=== PATIENT | male | born 1995 | race Caucasian/White ===

== ENCOUNTER 2019-07-29 07:45 | Emergency (ER) | payer SELFPAY ==
[2019-07-29] MEDS ORDERED: IBUPROFEN 100 MG/5 ML UCUP ONE (08:09)
--- NOTE | 2019-07-29 08:51 | ER ---
Nurse's Notes [facility] Name: Jose Cummings Age: 24 yrs Sex: Male : 1995 Arrival Date: 07/29/2019 Time: 07:49 Bed 10 Private MD: Diagnosis: Acute pharyngitis Presentation: 07/29 07:53 Presenting complaint: Patient states: sore throat, tonsil swelling and fever that began ss 2 days ago. Transition of care: patient was not received from another setting of care. Onset of symptoms was June 26, 2019. Risk Assessment: Do you want to hurt yourself or someone else? Patient reports no desire to harm self or others. Initial Sepsis Screen: Does the patient meet any 2 criteria? No. Patient's initial sepsis screen is negative. Does the patient have a suspected source of infection? No. Patient's initial sepsis screen is negative. Care prior to arrival: None. 07:53 Method Of Arrival: Ambulatory ss 07:53 Acuity: JESSIE 4 ss Historical: - Allergies: 07:55 No Known Allergies; ss - Home Meds: 07:55 levothyroxine oral [Active]; ss - PMHx: 07:55 Hypothyroidism; ss - PSHx: 07:55 Tonsillectomy; ss - Immunization history:: Adult Immunizations unknown. - Social history:: Smoking status: Patient/guardian denies using tobacco. - Ebola Screening: : Patient denies exposure to infectious person Patient denies travel to an Ebola-affected area in the 21 days before illness onset. Screenin:30 Abuse screen: Denies threats or abuse. Denies injuries from another. Nutritional ss screening: No deficits noted. Tuberculosis screening: Never had TB. Fall Risk None identified. Assessment: 07:53 General: Appears in no apparent distress. comfortable, Behavior is cooperative, ss anxious. Pain: Complains of pain in throat Pain began 4 days ago Is continuous. Neuro: Level of Consciousness is awake, alert, obeys commands, Oriented to person, place, time, situation. Cardiovascular: Patient's skin is warm and dry. Respiratory: Airway is patent Respiratory effort is even, unlabored, Respiratory pattern is regular, symmetrical. GI: Reports difficulty swallowing pills. Patient currently denies diarrhea, nausea, vomiting. : No signs and/or symptoms were reported regarding the genitourinary system. EENT: Throat is reddened. Derm: Skin is intact, is healthy with good turgor, Skin is pink, warm \\T\\ dry. normal. Musculoskeletal: Circulation, motion, and sensation intact. Range of motion: intact in all extremities. 08:10 Reassessment: Patient swallowed Motrin and water without difficulty. ss 09:12 Reassessment: Upon discharge, patient appeared upset, but smiling. Educated patient on ss follow up instructions which he then replied that he did not have a PCP. Spoke with patient that if he felt if his symptoms were worsening and he felt as if he needed to be seen again before he could obtain a PCP, that he could come back in to be reevaluated in ED. Pt states, "Why would I come back here if nothing was done?" When asked what patient's concerns were, he refused the Maalox and Viscous lidocaine cocktail and states, I'm just going to get a coffee." Patient then verbalized understanding of follow up instructions and left. Vital Signs: 07:55 BP 134 / 89; Pulse 98; Resp 17; Temp 100.8(TE); Pulse Ox 98% on R/A; Weight 87.09 kg; ss Height 6 ft. 3 in. (190.50 cm); 09:11 Temp 98.2(TE); ss 07:55 Body Mass Index 24.00 (87.09 kg, 190.50 cm) ED Course: 07:49 Patient arrived in ED. rg4 07:51 Georgina [facility]C [facility]. kb 07:51 Devyn Nguyen MD is Attending Physician. kb 07:54 Triage completed. ss 07:55 Arm band placed on right wrist. ss 08:30 Patient has correct armband on for positive identification. Bed in low position. Call ss light in reach. 08:58 Josefina Dawson, ARLETTE is Primary Nurse. ss 09:11 No provider procedures requiring assistance completed. Patient did not have IV access ss during this emergency room visit. Administered Medications: 08:09 Drug: Ibuprofen 600 mg Route: PO; ss 09:11 Follow up: Response: No adverse reaction; Temperature is decreased ss 09:11 Not Given (Patient Refused): GI Cocktail without - (Maalox Suspension 30 ml, ss Lidocaine Liquid 2 % 15 ml) PO once Outcome: 08:50 Discharge ordered by . gary 09:11 Discharged to home ambulatory, with significant other. ss 09:11 Condition: good 09:11 Discharge instructions given to patient, significant other, Instructed on discharge instructions, follow up and referral plans. medication usage, Demonstrated understanding of instructions, follow-up care, medications. 09:12 Patient left the ED. Signatures: Georgina White, OLGA-C OLGA-Josefina Foote, RN RN Rachelle Allison rg4
--- NOTE | 2019-07-29 08:52 | EDPHYS ---
Physician Documentation [facility] Name: Jose Cummings Age: 24 yrs Sex: Male : 1995 Arrival Date: 07/29/2019 Time: 07:49 Bed 10 Private MD: ED Physician Devyn Nguyen HPI: 07/29 08:49 This 24 yrs old Male presents to ER via Ambulatory with complaints of Sore kb Throat. 08:49 The patient presents with sore throat. The patient describes throat pain as constant. kb Onset: The symptoms/episode began/occurred 2 day(s) ago. Severity of symptoms: At their worst the symptoms were moderate, in the emergency department the symptoms are unchanged. Modifying factors: The symptoms are alleviated by nothing, the symptoms are aggravated by swallowing, Patient's oral intake status: limited fluid intake, limited food intake, Denies contact with similarly ill indivduals. Associated signs and symptoms: Pertinent positives: fever, Sore throat. The patient has not experienced similar symptoms in the past. The patient has not recently seen a physician. Pt reports fever, sore throat and swelling that started 2 days ago. Had augmentin at home that he has been taking without relief. States the pills feel like they are getting stuck so that is why he came in today. Pt tolerating fluids. . Historical: - Allergies: 07:55 No Known Allergies; ss - Home Meds: 07:55 levothyroxine oral [Active]; ss - PMHx: 07:55 Hypothyroidism; ss - PSHx: 07:55 Tonsillectomy; ss - Immunization history:: Adult Immunizations unknown. - Social history:: Smoking status: Patient/guardian denies using tobacco. - Ebola Screening: : Patient denies exposure to infectious person Patient denies travel to an Ebola-affected area in the 21 days before illness onset. ROS: 08:46 Neck: Negative for injury, pain, and swelling, Cardiovascular: Negative for chest pain, kb palpitations, and edema, Respiratory: Negative for shortness of breath, cough, wheezing, and pleuritic chest pain, Abdomen/GI: Negative for abdominal pain, nausea, vomiting, diarrhea, and constipation, MS/Extremity: Negative for injury and deformity, Skin: Negative for injury, rash, and discoloration, Neuro: Negative for headache, weakness, numbness, tingling, and seizure. 08:46 Constitutional: Positive for fever. 08:46 ENT: Positive for sore throat. Exam: 08:48 Constitutional: This is a well developed, well nourished patient who is awake, alert, kb and in no acute distress. Head/Face: Normocephalic, atraumatic. Neck: Trachea midline, no thyromegaly or masses palpated, and no cervical lymphadenopathy. Supple, full range of motion without nuchal rigidity, or vertebral point tenderness. No Meningismus. Chest/axilla: Normal chest wall appearance and motion. Nontender with no deformity. No lesions are appreciated. Cardiovascular: Regular rate and rhythm with a normal S1 and S2. No gallops, murmurs, or rubs. Normal PMI, no JVD. No pulse deficits. Respiratory: Lungs have equal breath sounds bilaterally, clear to auscultation and percussion. No rales, rhonchi or wheezes noted. No increased work of breathing, no retractions or nasal flaring. Abdomen/GI: Soft, non-tender, with normal bowel sounds. No distension or tympany. No guarding or rebound. No evidence of tenderness throughout. Skin: Warm, dry with normal turgor. Normal color with no rashes, no lesions, and no evidence of cellulitis. MS/ Extremity: Pulses equal, no cyanosis. Neurovascular intact. Full, normal range of motion. Neuro: Awake and alert, GCS 15, oriented to person, place, time, and situation. Cranial nerves II-XII grossly intact. Motor strength 5/5 in all extremities. Sensory grossly intact. Cerebellar exam normal. Normal gait. 08:48 ENT: External ear(s): are unremarkable, Ear canal(s): are normal, TM's: are normal, Nose: is normal, Mouth: is normal, Posterior pharynx: Airway: normal, no evidence of obstruction, Tonsils: are normal in appearance, erythema, that is mild. Vital Signs: 07:55 BP 134 / 89; Pulse 98; Resp 17; Temp 100.8(TE); Pulse Ox 98% on R/A; Weight 87.09 kg; ss Height 6 ft. 3 in. (190.50 cm); 09:11 Temp 98.2(TE); ss 07:55 Body Mass Index 24.00 (87.09 kg, 190.50 cm) ss MDM: 07:51 Patient medically screened. kb 08:48 Data reviewed: vital signs, nurses notes. Data interpreted: Pulse oximetry: on room air kb is 98 %. Interpretation: normal. Counseling: I had a detailed discussion with the patient and/or guardian regarding: the historical points, exam findings, and any diagnostic results supporting the discharge/admit diagnosis, lab results, the need for outpatient follow up, a family practitioner, to return to the emergency department if symptoms worsen or persist or if there are any questions or concerns that arise at home. 08:57 ED course: Pt reports his throat pain is "really bad" and he thinks something more is kb going on than a virus. Offered to test for mono and educated that that is a virus as well. Pt refused mono test. Educated that the throat swab will go for culture to make sure there is no other bacteria growth. . 07/29 07:58 Order name: Flu; Complete Time: 08:33 kb 07/29 07:58 Order name: Strep; Complete Time: 08:26 kb 07/29 08:26 Order name: Throat Culture EDMS Administered Medications: 08:09 Drug: Ibuprofen 600 mg Route: PO; ss 09:11 Follow up: Response: No adverse reaction; Temperature is decreased ss 09:11 Not Given (Patient Refused): GI Cocktail without - (Maalox Suspension 30 ml, ss Lidocaine Liquid 2 % 15 ml) PO once Disposition: 07/30 07:13 Co-signature as Attending Physician, Devyn Nguyen MD I agree with the assessment and kdr plan of care. Disposition: 07/29/19 08:50 Discharged to Home. Impression: Acute pharyngitis. - Condition is Stable. - Discharge Instructions: Pharyngitis, [id number], Sore Throat, [id number]. - Work release form, Medication Reconciliation Form, Thank You Letter, Antibiotic Education, Prescription Opioid Use form. - Follow up: Emergency Department; When: As needed; Reason: Worsening of condition. Follow up: Private Physician; When: 2 - 3 days; Reason: Recheck today's complaints, Continuance of care, Re-evaluation by your physician. Signatures: Dispatcher [employer] EDMS Georgina White, Devyn Swanson MD MD kdr Josefina Dawson, ARLETTE RN ss Corrections: (The following items were deleted from the chart) 07/29 09:12 08:50 07/29/2019 08:50 Discharged to Home. Impression: Acute pharyngitis. Condition is ss Stable. Forms are Medication Reconciliation Form, Thank You Letter, Antibiotic Education, Prescription Opioid Use. Follow up: Emergency Department; When: As needed; Reason: Worsening of condition. Follow up: Private Physician; When: 2 - 3 days; Reason: Recheck today's complaints, Continuance of care, Re-evaluation by your physician. kb 09:21 08:57 ED course: Pt reports his throat pain is "really bad" and he thinks something kb more is going on than a virus. Offered to test for mono and educated that that is a virus as well. Educated that the throat swab will go for culture to make sure there is no other bacteria growth. . kb
[2019-07-29] MEDS ORDERED: MAGNE/ALUM HYDROXD 30 ML UCUP ONE (09:00)
[2019-07-29] MEDS ORDERED: LIDOCAINE VISCOUS 2% SOLN 15 ML UDC ONE (09:00)
[2019-07-29 09:18] VITALS: BP 134/89; TEMP 98.2; O2SAT 98
--- OUTSIDE RECORDS SUMMARY | 2019-08-03 22:17 | XMS REPORT ---
:1995 Author Organization [employer] Care Team Providers Name Role Phone Gallardo Aditya Provider Role Unavailable Allergies No Known Allergies Problems Problem Type Condition Code Onset Dates Condition Status Assessment Postablative hypothyroidism E89.0 Active Assessment Graves disease E05.00 Active Assessment S/P radioactive iodine thyroid Z92.3 Active ablation Assessment Vitamin D deficiency disease E55.9 Active Assessment Mixed hyperlipidemia E78.2 Active Problem Mixed hyperlipidemia E78.2 Active Problem Vitamin D deficiency disease E55.9 Active Problem Hypercalcemia E83.52 Active Problem Graves disease E05.00 Active Problem Postablative hypothyroidism E89.0 Active Problem S/P radioactive iodine thyroid Z92.3 Active ablation Medications No Known Medications Results No Known Results Summary Purpose [employer] Submission
--- OUTSIDE RECORDS SUMMARY | 2019-08-03 22:17 | XMS REPORT ---
:1995 Author Organization [employer] Care Team Providers Name Role Phone Gallardo, Aditya Provider Role Unavailable Allergies, Adverse Reactions, Alerts Substance Reaction Event Type N.K.D.A. Info Not Available Non Drug Allergy Problems Problem Type Condition Code Onset Dates Condition Status Assessment Graves disease E05.00 Active Assessment Postablative hypothyroidism E89.0 Active Assessment Mixed hyperlipidemia E78.2 Active Problem Mixed hyperlipidemia E78.2 Active Problem Vitamin D deficiency disease E55.9 Active Problem Hypercalcemia E83.52 Active Problem Graves disease E05.00 Active Problem Postablative hypothyroidism E89.0 Active Problem S/P radioactive iodine thyroid Z92.3 Active ablation Assessment Nicotine dependence, uncomplicated, F17.200 Active unspecified nicotine product type Assessment Fatigue, unspecified type R53.83 Active Assessment Dermatitis L30.9 Active Assessment Vitamin D deficiency disease E55.9 Active Assessment Hypercalcemia E83.52 Active Assessment S/P radioactive iodine thyroid Z92.3 Active ablation Medications Medication Code Code Instructions Start End Status Dosage System Date Date Levothyroxine [facility] [id number] MCG Orally Active 1 tablet Sodium Once a day on an empty stomach in the morning Results No Known Results Summary Purpose [employer] Submission
== END 2019-07-29 09:12 | disposition home or self-care (01) ==
LOC: ER 07:45
DX: J02.9 Acute pharyngitis, unspecified (principal); E03.9 Hypothyroidism, unspecified
CPT/HCPCS: 87070; 87081; 87804; 99283